=== PATIENT | male | born 1970 | race Caucasian/White ===

== ENCOUNTER → 2023-05-21 | Outpatient (CLI) | payer OTHER ==
--- NOTE | 2023-05-21 11:52 | P.SLEEP ---
History of Present Illness DATE: 05/22/2023 CONSULTATION/NEW PATIENT EVALUATION HISTORY OF PRESENT ILLNESS/SLEEP-WAKE EVALUATION: 53 year old gentleman had been evaluated in the sleep center for possible obstructive sleep apnea hypopnea syndrome. SLEEP SCHEDULE: Usually sleep schedule from 9 PM to 5:30 AM on weekdays and from 10 PM to 7:30 AM on weekend. FALLING ASLEEP: No problems with falling asleep. DURING SLEEP: According to patient he has loud snoring and witnessed episodes of stop breathing during the sleep. Patient wakes up from sleep with episodes of nocturia, dry mouth, heartburn, gasping for air and restless leg symptoms No history of hypnogogical hallucinations, sleep paralysis, or cataplexy. DURING THE DAY/WAKE STATE: In the morning patient wake up tired, has difficulties to pretension, has problems with concentration. [place] sleepiness scale is 7. Usually patient doesn't take naps. PAST MEDICAL HISTORY: Hyperlipidemia, episodes of increasing blood pressure documented medical office. PAST SURGICAL HISTORY: None. MEDICATIONS: None. SOCIAL HISTORY: Positive for smoking for 35 years, presently half pack a day, alcohol consumption occasional. FAMILY HISTORY: Heart problems, cancer. REVIEW OF SYSTEMS: Loud snoring, awakenings from sleep, episodes of sleepiness during the day. No fevers. No double vision. No recent chest pain. No shortness of breath. No abdominal pain. No bleeding episodes. No blood in urine. No seizure episodes. PHYSICAL EXAMINATION: GENERAL: A pleasant patient without any distress. VITAL SIGNS: BP 166/84 , HR 85 , RR 12 , weight 253.6 pounds, height 5 foot 7.5 inches, body mass index 39.0 . HEENT: PERRLA, EOMI. Evaluation of oropharynx showed tongue protrudes midline, low position of soft palate Mallampati 4. NECK: Supple. No JVD. Thyroid is not palpable. 19 inches in circumference. LUNGS: Clear to percussion and to auscultation. Good air exchange. No wheezing or rhonchi. HEART: S1, S2 regular. No murmurs, gallops or rubs. ABDOMEN: Soft and nontender. Bowel sounds are present. No organomegaly appreciated. Slightly obese EXTREMITIES: No clubbing or cyanosis. BOOKSTORE CLERK: Awake, alert, and oriented x3. Cranial nerves 2 to 7 intact. There is no fasciculation or atrophy noted. No focal deficits observed. ASSESSMENT: 1. Loud snoring, witnessed episodes of stop breathing during the sleep, extremely low position of soft palate Mallampati 4, wide neck 19 inches in circumference. Obstructive sleep apnea-hypopnea syndrome. 2. Obesity, BMI 39.0. 3. Hypertension in the office. 4. History of hyperlipidemia. 5 restless leg symptoms. 6 . Movements during the sleep, possibly periodic limb movements. PLAN: 1. Polysomnography for evaluation of patient's breathing during sleep and to check for possible. She movements. 2. CPAP/BiPAP titration if sleep study confirms obstructive sleep apnea- hypopnea syndrome. 3. Preferable position during sleep on the side. 4. No driving if patient feels any sleepiness. Patient is aware of civil and criminal liability for unsafe driving. 5. Sleep hygiene with regular sleep time for at least 7.5-8 hours. 6. Watching and losing weight. Thank you very much for referring this patient for consultation. Sincerely, Milton Catherine MD, PhD, FAASM. Diplomat of [place] [employer], Sleep Medicine Board by [place] [employer] [employer] Auditor Appraiser of [facility] Note - Sleep Note Sleep Note: Temperature: Pulse Rate: Respiratory Rate: Blood Pressure: SpO2: Height: Weight: BMI: Neck Circumference:
== END ==
LOC: 3 N SLEEP 11:22
PROVIDERS: ATTEND Internal Medicine
DX: G47.33 Obstructive sleep apnea (adult) (pediatric) (principal); E66.9 Obesity, unspecified; I10 Essential (primary) hypertension; E78.5 Hyperlipidemia, unspecified; G25.81 Restless legs syndrome; G47.69 Other sleep related movement disorders; G47.61 Periodic limb movement disorder; Z99.89 Dependence on other enabling machines and devices; Z87.891 Personal history of nicotine dependence; Z68.39 Body mass index [BMI] 39.0-39.9, adult
CPT/HCPCS: 99202

== ENCOUNTER 2023-08-11 19:57 | Outpatient (CLI) | payer OTHER | END 2023-08-12 05:20 | disposition home or self-care (01) | LOC: 3 N SLEEP 19:57 | PROVIDERS: ATTEND Internal Medicine | DX: G47.33 Obstructive sleep apnea (adult) (pediatric) (principal) | CPT/HCPCS: 95811 ==

== ENCOUNTER → 2023-10-19 | Outpatient (CLI) | payer OTHER ==
--- NOTE | 2023-10-19 15:55 | P.PN ---
Subjective DATE: 10/19/2023 FOLLOW UP VISIT. Patient with obstructive sleep apnea hypopnea syndrome return to sleep center for follow-up visit. Recently patient had sleep study which documented obstructive sleep apnea hypopnea syndrome. Patient was initiated on PAP therapy and today is first visit after treatment was started. Patient was able to use PAP equipment every night for the whole night. Patient feels better after starting treatment with CPAP. The patient does not have significant problems with the mask, PAP pressure and humidification. [place] sleepiness scale is 6, which is normal. I checked information from PAP unit. PAP unit pressure 6-13, average 12.4 cm H2O. Usage is 100 % for more then 4 hours, average 7-3/4 hours per night. Leak is 18.8 l/m, which is in acceptable range. Apnea Hypopnea Index is 0.5, which is normal. MEDICATIONS: None at the present time During physical exam: GENERAL: A pleasant patient without any distress. VITAL SIGNS: BP 146/88, HR 78, RR 16, weight 152.4, temperature 98.2, oxygen saturation at room air 98%. HEENT: PERRLA, EOMI.low position of soft palate, Mallapati[] . NECK: Supple. No JVD. LUNGS: Clear to percussion and to auscultation. Good air exchange. No wheezing or rhonchi. HEART: S1, S2 regular. ABDOMEN: Soft and nontender.[] EXTREMITIES: No clubbing or cyanosis. APARTMENT RENTAL CLERK: Awake, alert, and oriented x3. No focal deficit. Impressions: 1. Extremely severe obstructive sleep apnea hypopnea syndrome with apnea- hypopnea index 101.6 . Patient demonstrated great compliance with treatment, benefiting from treatment. Normal respiration on CPAP. 2. Obesity. 3. Hypertension in the office. 4. History of hyperlipidemia. Plan: 1. Continue using PAP equipment every night for the whole night. 2. To change air filter at least 1-2 times per month. 3. PAP unit should stay lower then position of the head. 4. Advised patient to remove all remaining water from humidifier canister daily and make it dry after each usage. Refill canister with fresh distilled water before each usage. 5. Sleep hygiene with regular time in bed for at least 8 hours. 6. Precautions related to driving. No driving if feel any sleepiness. 7. I will maintain prescription for PAP supplies including mask, tube, filters. 8. Follow up visit in 6 months or earlier if patient has any problems. 9. Watching and losing weight. Thank you very much for allowing me to participate in the management of your patient. Milton Catherine MD, PhD, FAASM. Diplomat of [place] [employer], Sleep Medicine Board by [place] [employer] Entry Level Account Executive of [facility] [place]
== END ==
LOC: 3 N SLEEP 14:57
PROVIDERS: ATTEND Internal Medicine
DX: G47.33 Obstructive sleep apnea (adult) (pediatric) (principal); E66.9 Obesity, unspecified; E78.5 Hyperlipidemia, unspecified; I10 Essential (primary) hypertension
CPT/HCPCS: 99212